=== PATIENT | female | born 1985 | race Caucasian/White ===

== ENCOUNTER 2016-11-13 08:17 | Emergency (ER) | payer BC, OTHER ==
[~2016-11-13] VITALS: Ht 167.6 cm; Wt 100.7 kg
[~2016-11-13 08:17] MED LIST: LIDODERM 5% P1 PATCH TD; NAPROSYN500 MG PO; PROMETHAZINE HC25 M1 PO; SPRINTEC1 EACH PO; TORADOL10 MG PO; VALACYCLOVIR500 MG PO
[2016-11-13] MEDS ORDERED: FLUOXETINE HCL20 MG PO (08:48)
[2016-11-13] MEDS ORDERED: ANIMAL CHEWS1 EACH PO (08:49)
[2016-11-13] MEDS ORDERED: ASPIRIN81 M2 PO (08:49)
[2016-11-13 08:52] LABS: EOSINOPHIL (%) 0.3 % (0-5); HEMATOCRIT 31.7 % (36.0-46.0); IMMATURE GRANULOCYTE (%) 0.4 % (0.0-0.7); IMMATURE GRANULOCYTE COUNT 0.1 K/uL; INSTRUMENT ABS NEUTROPHIL CT 9.3 K/uL; LYMPHOCYTE COUNT 1.7 K/uL (1.0-2.8); MCH 23.5 PG (29.0-34.0); MCHC 31.2 G/DL (30.0-36.0); MCV 75.3 FL (83-99); MEAN PLAT.VOLUME 10.3 uM^3 (9.5-12.4); MONOCYTE (%) 5.3 % (3-12); MONOCYTE COUNT 0.6 K/uL (0-0.8); NEUTROPHIL (%) 79.4 % (45-76); NEUTROPHIL COUNT 9.3 K/uL (1.8-6.4); PLATELET COUNT 345 K/uL (156-360); RBC DIS.WIDTH-CV 15.5 % (11.8-14.6); RBC DIS.WIDTH-SD 42.5 % (39-53); RED BLOOD COUNT 4.21 M/uL (3.80-5.20); WHITE BLOOD COUNT 11.7 K/uL (4.1-10.2)
[2016-11-13 09:13] LABS: INTER. NORMALIZED RATIO 1.1; PROTHROMBIN TIME 12.5 SEC (10.2-12.9); PTT 30.3 SEC (25-37)
[2016-11-13 09:21] LABS: CHLORIDE 110 mEq/L (99-109); POTASSIUM 3.6 mEq/L (3.7-5.4); SODIUM 139 mEq/L (136-147)
[2016-11-13 09:22] LABS: MAGNESIUM 1.9 mg/dL (1.3-2.7)
[2016-11-13 09:24] LABS: ANION GAP 5 MEQ/L (2-14)
[2016-11-13 09:27] LABS: GFR ESTIMATE (CALCULATED) > 59 mL/min/; TROP-I INTERPRETATION NEGATIVE; TROPONIN-I < 0.01 ng/mL (0.0-0.30); UREA NITROGEN (BUN) 12 mg/dL (9-23)
[2016-11-13 10:06] LABS: GLUCOSE 106 mg/dL (70-99)
[2016-11-13] MEDS ORDERED: TORADOL10 MG PO (10:52)
[2016-11-13 11:34] VITALS: BP 116/59
== END 2016-11-13 11:35 | disposition home or self-care (01) ==
LOC: EME 08:17
PROVIDERS: Emergency Medicine
DX: R07.9 Chest pain, unspecified (principal); I42.2 Other hypertrophic cardiomyopathy; M79.7 Fibromyalgia; Z87.891 Personal history of nicotine dependence; Z90.49 Acquired absence of other specified parts of digestive tract
CPT/HCPCS: 71010; 71275; 80048; 83735; 83880; 84484; 85025; 85610; 85730; 93005; 99281; 99285; J1885; J7030